=== PATIENT | female | born 1995 | race Caucasian/White ===

== ENCOUNTER 2022-08-18 16:26 | Emergency (ER) | payer OTHER ==
[~2022-08-18] VITALS: Ht 165.1 cm; Wt 113.4 kg
--- NOTE | ~2022-08-18 | EKG ---
[facility] [address] [facility] [place], [place] [address] Draft EKG completed, results pending confirmation PATIENT NAME: KAIDEN ROJAS Electrocardiogram DATE OF : 89 PHYSICIAN: PRELIMINARY REPORT #: [id number] REPORT IS CONFIDENTIAL AND NOT TO BE RELEASED WITHOUT AUTHORIZATION
[2022-08-18] MEDS ORDERED: CYMBALTA60 MG PO (16:43)
[2022-08-18] MEDS ORDERED: NORET-ESTR-FE1 EACH PO (16:44)
[2022-08-18] MEDS ORDERED: PROPRANOLOL HCL10 MG PO (18:01)
[2022-08-18 18:13] VITALS: BP 111/56
== END 2022-08-18 18:14 | disposition home or self-care (01) ==
LOC: ED 16:26
DX: G90.A Postural orthostatic tachycardia syndrome [POTS] (principal); Z79.899 Other long term (current) drug therapy
CPT/HCPCS: 36415; 80053; 83735; 85025; 93005; 93010